=== PATIENT | male | born 1970 | race Caucasian/White ===

== ENCOUNTER 2018-12-01 09:32 | Emergency (ER) | payer MEDICAID, SELFPAY ==
[~2018-12-01] VITALS: Ht 180.3 cm; Wt 116.6 kg
[2018-12-01 10:31] LABS: MEAN CORPUSCULAR HEMOGLOBIN 29.8 pg (27.5-34.5); MEAN CORPUSCULAR HGB CONC 33.5 g/dL (33.2-36.2); MEAN PLATELET VOLUME 7.7 fL (7.4-10.4); PLATELET COUNT 365 x10^3/uL (130-400); RED BLOOD COUNT 5.24 x10^6/uL (4.38-5.82); RED CELL DISTRIBUTION WIDTH 13.5 % (9.4-14.8)
[2018-12-01 10:38] LABS: INTERNATIONAL NORMALIZED RATIO 0.95 (0.93-1.1)
[2018-12-01 10:47] LABS: ALANINE AMINOTRANSFERASE 30 U/L (12-78); ALBUMIN 4.2 g/dL (3.4-5.0); ANION GAP 6 mmol/L (5-15); CHLORIDE 110 mmol/L (98-107)
[2018-12-01 10:51] LABS: ALKALINE PHOSPHATASE 76 U/L (45-117); BILIRUBIN,TOTAL 1.1 mg/dL (0.2-1.0); TOTAL PROTEIN 7.7 g/dL (6.4-8.2)
--- NOTE | 2018-12-01 11:07 | NUR ---
"IT JUST GOT SWOLLEN AND I DIDN'T DO ANYTHING TO IT". NOTICED SWELLING TO L ANKLE LAST NIGHT AT 1700. DENIES HX DVT STATES IT IS IN HIS FAMILY. WORRIED ABOUT DVT. DENIES SOB/CP. CAP REFILL 3 SEC TO LLE. REPORTS LLE PAINFUL AT 7/10
[2018-12-01] MEDS ORDERED: KETOROLAC 30 MG/1 ML ONE (11:23)
[2018-12-01 11:28] LABS: BASOPHILS # (AUTO) 0.03 x10^3/uL (0-0.1); BASOPHILS % (AUTO) 0 % (0-1); EOSINOPHILS # (AUTO) 0.11 x10^3/uL (0-0.4); EOSINOPHILS % (AUTO) 1 % (1-7); LYMPHOCYTES # (AUTO) 2.44 x10^3/uL (1-3.4); LYMPHOCYTES % (AUTO) 20 % (22-44); MD SCAN; MONOCYTES # (AUTO) 1.54 x10^3/uL (0.2-0.8); MONOCYTES % (AUTO) 13 % (2-9); NEUTROPHILS # (AUTO) 8.14 x10^3/uL (1.8-6.8); NEUTROPHILS % (AUTO) 66 % (42-75)
[2018-12-01] MEDS ORDERED: KETOROLAC 30 MG/1 ML IM ONE (11:30)
--- NOTE | 2018-12-01 12:14 | NUR ---
PATIENT REPORTS PAIN IMPROVED TO 2/10 AFTER MEDICATION ADMINISTRATION +2 DP TO AFFECTED LEG REMAINS INTACT UPDATED ON POC (AWAITING US READ) VSS ON NIBP/POX CALL SANCHEZ IN HAND/SIDE RAILS UP AT BEDSIDE
[2018-12-01 13:47] LABS: HCT (SEDRATE) 46.7 % (39.2-51.8)
--- NOTE | 2018-12-01 14:17 | NUR ---
PATIENT CONTINUES TO REPORTS COMPLETE RESOLUTION OF PAIN PROVIDER PERFORMING ADDITIONAL TESTS TO DETERMINE DIAGNOSIS ORTHOPEDICS TO EVALUATE PATIENT RESTING COMFORTABLY ON GURNERY WITH CALL SANCHEZ IN HAND CMS REMAIN INTACT TO LEG FAMILY AT BEDSIDE
[2018-12-01 14:29] VITALS: BP 134/82
[2018-12-01] MEDS ORDERED: SODIUM CHLORIDE FLUSH 10ML SYR IVF ONE (14:30)
--- NOTE | 2018-12-01 15:00 | NUR ---
REPORT FROM DEANA SERVIN. PT MEDICATED PER EMAR.
[2018-12-01] MEDS ORDERED: CEPHALEXIN 500 MG CAPSULE ONE (15:10)
--- NOTE | 2018-12-01 15:29 | NUR ---
NO S/S OF ABX RXN NOTED. DAVIAN WRAP APPLIED FOR COMFORT, PT EDUCATED ON CARE. CRUTCHES PROVIDED, PT DEMONSTRATES SAFE AMBULATION. DC EDUCATION PROVIDED, PT DEMONSTRATES UNDERSTANDING. PT AMBULATED STEADILY W/ CRUTCHES TO DC. FAMILY TO TRANSPORT PT HOME.
[2018-12-01] MEDS ORDERED: CEPHALEXIN 500 MG CAPSULE PO ONE (15:30)
== END 2018-12-01 15:31 | disposition home or self-care (01) ==
LOC: ED 11:40
DX: L03.116 Cellulitis of left lower limb (principal); F17.200 Nicotine dependence, unspecified, uncomplicated
CPT/HCPCS: 36415; 73610; 80053; 84550; 85025; 85610; 85651; 85730; 86141; 93971; 96372; 99284; J1885